=== PATIENT | female | born 1980 | race African-American/Black ===

== ENCOUNTER → 2017-05-11 | Outpatient (CLI) | payer OTHER ==
[2016-07-21 14:28] VITALS: BP 136/90
[~2017-05-11] MED LIST: CLIN150C14 PO; IBUP-1060 PO; LIDO20SO PO
--- NOTE | 2017-05-11 14:27 | KCIC ---
3 view right knee HISTORY: Acute right knee pain after a fall. FINDINGS: No acute fracture or bone destruction. Joints and soft tissues appear intact. Conclusion: No acute radiographic abnormality Electronically signed by: Evelio Shearer MD (05/11/2017 2:24 PM) [facility]
--- NOTE | 2017-05-11 14:28 | KCIC ---
3 view right wrist HISTORY: Acute pain after fall. FINDINGS: No evidence of an acute fracture. Joint spaces intact. No significant soft tissue abnormality. IMPRESSION: No acute fracture or dislocation. Consider MR wrist if symptoms do not improve. Electronically signed by: Evelio Shearer MD (05/11/2017 2:25 PM) [facility]
== END | disposition home or self-care (01) ==
LOC: KCIC 13:42
PROVIDERS: ATTEND Family Medicine
DX: M25.531 Pain in right wrist (principal); M25.561 Pain in right knee; Z91.81 History of falling
CPT/HCPCS: 73110; 73562

== ENCOUNTER 2018-06-07 21:12 | Emergency (ER) | payer OTHER ==
[~2018-06-07] VITALS: Ht 170.2 cm; Wt 103.0 kg
[2018-06-07 21:37] VITALS: BP 147/92
[2018-06-07] MEDS ORDERED: HYDR30CR61 TP (21:47)
--- NOTE | 2018-06-07 21:47 | PHYS DOC ---
Past Medical History Past Medical History: No Pertinent History Past Surgical History: Tubal ligation, Other Additional Past Surgical Histo: ANKLE SX Alcohol Use: Occasionally Drug Use: Marijuana Adult General Chief Complaint Chief Complaint: RECTAL BLEED HPI HPI Patient is a 38 year old female who presents with bright red rectal bleeding that started this morning. Patient reports she has had several bowel movements today and all have had bright red blood present. She has a history of hemorrhoids. She reports she is having some lower abdominal cramping and discomfort that she attributes that to her upcoming menses. Review of Systems Review of Systems Constitutional: Denies fever or chills [] Cardiovascular: No additional information not addressed in HPI [] GI: Generalized abdominal cramping, no nausea or vomiting, bright red blood in stool : Denies dysuria or hematuria [] Musculoskeletal: Denies back pain or joint pain [] Integument: Denies rash or skin lesions [] Neurologic: Denies headache, focal weakness or sensory changes [] All other systems were reviewed and found to be within normal limits, except as documented in this note. Allergies Allergies Allergies Coded Allergies Type Severity Reaction Last Updated Verified codeine Allergy Unknown Itching 02/23/16 Yes iodine Allergy Unknown Itching 02/23/16 Yes Physical Exam Physical Exam Constitutional: Well developed, well nourished, no acute distress, non-toxic appearance. [] HENT: Normocephalic, atraumatic Eyes: PERRLA, EOMI, conjunctiva normal, no discharge. [] Neck: Normal range of motion, no tenderness, supple, no stridor. [] Lungs & Thorax: No increased work of breathing or respiratory distress present Abdomen: Bowel sounds normal, soft, no tenderness Genitourinary: Multiple hemorrhoids present externally around rectum, 1 internal /external hemorrhoid with inflammation, likely the source of bleeding Skin: Warm, dry, no erythema, no rash. [] Neurologic: Alert and oriented X 3, normal motor function, normal sensory function, no focal deficits noted. [] Psychologic: Affect normal, judgement normal, mood normal. [] Current Patient Data Vital Signs Vital Signs Date Time Temp Pulse Resp B/P (MAP) Pulse Ox O2 Delivery O2 Flow Rate FiO2 06/07/18 21:37 98.6 104 18 147/92 (110) 97 Room Air 98.6 EKG EKG [] Radiology/Procedures Radiology/Procedures [] Course & Med Decision Making Course & Med Decision Making Pertinent Labs and Imaging studies reviewed. (See chart for details) Plan: Reassurance provided, Anusol Rx, stool softener, push fluids, follow up with PCP, return precautions reviewed Karen Disclaimer Kamillaon Disclaimer This electronic medical record was generated, in whole or in part, using a voice recognition dictation system. Departure Departure Impression: Primary Impression: Hemorrhoid Disposition: HOME, SELF-CARE Condition: GOOD Referrals: UNKNOWN PCP NAME (PCP) Patient Instructions: Hemorrhoids Additional Instructions: Stool softeners, push fluids Scripts Hydrocortisone (ANUSOL-HC) 30 Gm Cream..g. 1 ROSALBA TP BID, #30 GM 1 Refill Prov: NADIYA ANDERSON APRN 06/07/18 Problem Qualifiers Primary Impression: Hemorrhoid Hemorrhoid type: unspecified Qualified Codes: K64.9 - Unspecified hemorrhoids NADIYA ANDERSON [employer] Jun 07, 2018 21:47
== END 2018-06-07 21:55 | disposition home or self-care (01) ==
LOC: ER 21:12
DX: K64.9 Unspecified hemorrhoids (principal); Z98.51 Tubal ligation status; Z88.5 Allergy status to narcotic agent; Z91.041 Radiographic dye allergy status
CPT/HCPCS: 99283

== ENCOUNTER 2020-01-25 08:43 | Emergency (ER) | payer MEDICAID, OTHER ==
[~2020-01-25] VITALS: Ht 170.2 cm; Wt 104.0 kg
[~2020-01-25 08:43] MED LIST changes: +HYDR30CR61 TP
[2020-01-25 08:50] VITALS: BP 152/94
[2020-01-25] MEDS ORDERED: PENI500T PO (09:19)
--- NOTE | 2020-01-25 09:21 | PHYS DOC ---
Past Medical History Past Medical History: Diverticulitis Past Surgical History: Tubal ligation, Other Additional Past Surgical Histo: ANKLE SX, colon resection, colostomy reversal Smoking Status: Current Every Day Smoker Alcohol Use: Occasionally Drug Use: Marijuana Social History Narrative: last use last week Adult General Chief Complaint Chief Complaint: DENTAL PROBLEM HPI HPI Patient is a 39 year old female presented to the ED with chief complaint of dental pain. Patient states that the pain has been present for the last 3 to 4 days. Patient states that her PCP is not seeing any patients currently and so she came into the ER. Patient complains of pain to the right upper and lower teeth. Patient does have a history of dental caries. Patient denies fever, difficulty in swallowing. Review of Systems Review of Systems Patient denies fever, chills, nausea, vomiting, diarrhea, dysuria, chest pain, abdominal pain, shortness of breath. Patient does complain of dental pain. All other systems were reviewed and found to be within normal limits, except as documented in this note. Allergies Allergies Allergies Coded Allergies Type Severity Reaction Last Updated Verified codeine Allergy Unknown Itching 02/23/16 Yes iodine Allergy Unknown Itching 02/23/16 Yes Physical Exam Physical Exam Constitutional: Well developed, well nourished, no acute distress, non-toxic appearance. [] HENT: Normocephalic, atraumatic, diffuse dental caries in the right upper and right lower jaw Eyes: PERRLA, EOMI Neck: Normal range of motion Cardiovascular:Heart rate regular rhythm, no murmur [] Lungs & Thorax: Bilateral breath sounds clear to auscultation [] Abdomen: Bowel sounds normal, soft, no tenderness Extremities: No tenderness, ROM intact Neurologic: Alert and oriented X 3 Current Patient Data Vital Signs Vital Signs Date Time Temp Pulse Resp B/P (MAP) Pulse Ox O2 Delivery O2 Flow Rate FiO2 01/25/20 08:50 98.8 104 16 152/94 (113) 100 Room Air 98.8 EKG EKG [] Radiology/Procedures Radiology/Procedures [] Course & Med Decision Making Course & Med Decision Making Patient will be treated with oral antibiotics. Patient instructed to follow-up with dentist as soon as possible. Patient vital signs stable. Discussed plan of care with patient. Patient is instructed to follow up with PCP in one to 2 days. Appropriate discharge instructions given to patient to return to the ED or to seek immediate medical evaluation. Patient is instructed to return to the ED if symptoms worsen or if any concerns. Dragon Disclaimer Dragon Disclaimer This electronic medical record was generated, in whole or in part, using a voice recognition dictation system. Departure Departure Impression: Primary Impression: Dental caries Disposition: 01 HOME, SELF-CARE Condition: STABLE Referrals: UNKNOWN PCP NAME (PCP) Patient Instructions: Dental Caries Additional Instructions: Discussed plan of care with patient. Patient is instructed to follow up with PCP and/or dentist n one to 2 days. Appropriate discharge instructions given to patient to return to the ED or to seek immediate medical evaluation. Patient is instructed to return to the ED if symptoms worsen or if any concerns. Scripts Penicillin V Potassium (PENICILLIN V POTASSIUM) 500 Mg Tablet 1 TAB PO QID for 10 Days, #40 TAB Prov: YAZMIN RICKETTS DO 01/25/20 YAZMIN RICKETTS DO Jan 25, 2020 09:20
== END 2020-01-25 09:32 | disposition home or self-care (01) ==
LOC: ER 08:43
DX: K02.9 Dental caries, unspecified (principal); K08.89 Other specified disorders of teeth and supporting structures; F17.200 Nicotine dependence, unspecified, uncomplicated; Z88.5 Allergy status to narcotic agent; Z88.8 Allergy status to other drugs, medicaments and biological substances
CPT/HCPCS: 99283

== ENCOUNTER 2020-10-01 06:24 | Emergency (ER) | payer MEDICAID ==
[~2020-10-01] VITALS: Ht 170.2 cm; Wt 119.0 kg
[~2020-10-01 06:24] MED LIST changes: +PENI500T PO
[2020-10-01 06:38] VITALS: BP 185/96
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
[2020-10-01] MEDS ORDERED: KETOROLAC 60 MG/2 ML VIAL. IM ONE (07:30)
[2020-10-01] MEDS ORDERED: HYDROcodone/APAP 5/325MG 1 TAB TABLET PO ONE (07:30)
[2020-10-01] MEDS ORDERED: CYCLOBENZAPRINE 10 MG TABLET. PO ONE (07:30)
[2020-10-01] MEDS ORDERED: methylPREDNISolone SOD SUCC PF 125 MG/2 ML VIAL. IM ONE (07:30)
--- NOTE | 2020-10-01 09:25 | RAD ---
LUMBAR SPINE 2-3V DATE: 10/01/2020 7:09 AM INDICATION: Reason: lower back pain radiating to legs. / Spl. Instructions: / History: COMPARISON: None. FINDINGS: Five non-rib bearing lumbar-type vertebral bodies are present. Bones/Alignment: No evidence of acute compression fracture. There is no listhesis. Joints: There is no disc space loss. Miscellaneous: None. IMPRESSION: No acute osseous abnormality. Electronically signed by: Jarett Cazares MD (10/01/2020 9:22 AM) [id number]
[2020-10-01] MEDS ORDERED: TRAM100T2 PO (10:06)
[2020-10-01] MEDS ORDERED: PRED20TA PO (10:06)
== END 2020-10-01 10:17 | disposition home or self-care (01) ==
LOC: ER 06:24
DX: M54.41 Lumbago with sciatica, right side (principal); M54.42 Lumbago with sciatica, left side; M54.2 Cervicalgia; Z98.51 Tubal ligation status; F17.200 Nicotine dependence, unspecified, uncomplicated; Z87.19 Personal history of other diseases of the digestive system; Z88.5 Allergy status to narcotic agent; Z88.8 Allergy status to other drugs, medicaments and biological substances
CPT/HCPCS: 72100; 81025; 96372; 99284; J1885; J2930

== ENCOUNTER 2021-10-04 21:42 | Emergency (ER) | payer MEDICAID ==
[~2021-10-04] VITALS: Ht 170.2 cm; Wt 122.0 kg
[~2021-10-04 21:42] MED LIST changes: +BENZ100C PO; -CLIN150C14 PO; +CLIN150C16 PO; +CYCL10TA19 PO; +HYDR-2761 PO; +PRED20TA PO; +TRAM100T2 PO
[2021-10-04] MEDS ORDERED: IV NORMAL SALINE 500ML BAG 500 ML IV ONE (22:15)
[2021-10-04] MEDS ORDERED: ONDANSETRON PF 4 MG/2 ML VIAL. IVP ONE (22:15)
--- NOTE | 2021-10-04 22:19 | ED.ADGEN ---
Past Medical History Past Medical History: Diverticulitis Additional Past Medical Histor: UTERINE FIBROIDS Past Surgical History: Tubal ligation, Other Additional Past Surgical Histo: ANKLE colon resection,colostomy ,ABSCESS R BREAST Smoking Status: Current Every Day Smoker Alcohol Use: Heavy Drug Use: Marijuana General Adult HPI: HPI: Patient is a 41 year old female coming in for multiple complaints. Patient is concerned she has Covid, is also noticed dark brown blood in her stools. She has had productive cough, vomiting, diarrhea, decreased appetite, and abdominal pain that she describes as "gurgling". Says the abdominal pain is generalized and moves around. Denies any hematuria dysuria. Has not been vaccinated against Covid or influenza, no known sick contacts. Review of Systems: Review of Systems: All other systems within normal limits except for as noted in the HPI Current Medications: Current Medications Medications (Trade) Dose Ordered Sig/Perlita Start Time Stop Time Status Last Admin Dose Admin Ketorolac Tromethamine (Toradol 15mg Vial) 15 mg 1X ONCE 10/05/21 00:30 10/05/21 00:31 DC 10/05/21 00:39 15 MG Ondansetron HCl (Zofran) 4 mg 1X ONCE 10/04/21 22:15 10/04/21 22:16 DC 10/04/21 23:39 4 MG Sodium Chloride 1,000 ml @ 1,000 mls/hr 1X ONCE 10/04/21 23:45 10/05/21 00:44 DC 10/05/21 00:39 1,000 MLS/HR Allergies: Allergies: Allergies Coded Allergies Type Severity Reaction Last Updated Verified codeine Allergy Intermediate Itching 05/24/21 Yes iodine Allergy Intermediate Itching 05/24/21 Yes Physical Exam: PE: Constitutional: Well developed, well nourished, no acute distress, non-toxic appearance. [] HENT: Normocephalic, atraumatic, bilateral external ears normal, nose normal. [] Eyes: PERRLA, conjunctiva normal, no discharge. [] Neck: No rigidity, supple, no stridor. [] Cardiovascular: Regular rate and rhythm, brisk cap refill [] Lungs & Thorax: Non labored symmetric respirations, no tachypnea or respiratory distress [] Abdomen: Soft, nondistended. Skin: Warm, dry, no erythema, no rash. [] Back: Unremarkable Extremities: No deformities, range of motion grossly intact, no lower extremity edema [] Neurologic: Alert and oriented X 3, no focal deficits noted. [] Psychologic: Affect normal, judgement normal, mood normal. [] Current Patient Data: Labs: Laboratory Tests Test 10/04/21 22:35 10/04/21 22:46 White Blood Count 3.9 x10^3/uL (4.0-11.0) L Red Blood Count 4.38 x10^6/uL (3.50-5.40) Hemoglobin 9.0 g/dL (12.0-15.5) L Hematocrit 30.9 % (36.0-47.0) L Mean Corpuscular Volume 71 fL (79-100) L Mean Corpuscular Hemoglobin 21 pg (25-35) L Mean Corpuscular Hemoglobin Concent 29 g/dL (31-37) L Red Cell Distribution Width 23.0 % (11.5-14.5) H Platelet Count 253 x10^3/uL (140-400) Neutrophils (%) (Auto) 45 % (31-73) Lymphocytes (%) (Auto) 45 % (24-48) Monocytes (%) (Auto) 9 % (0-9) Eosinophils (%) (Auto) 0 % (0-3) Basophils (%) (Auto) 1 % (0-3) Neutrophils # (Auto) 1.8 x10^3/uL (1.8-7.7) Lymphocytes # (Auto) 1.8 x10^3/uL (1.0-4.8) Monocytes # (Auto) 0.3 x10^3/uL (0.0-1.1) Eosinophils # (Auto) 0.0 x10^3/uL (0.0-0.7) Basophils # (Auto) 0.0 x10^3/uL (0.0-0.2) Platelet Estimate Adequate (ADEQUATE) Polychromasia Slight Hypochromasia Marked Anisocytosis Mod Microcytosis Mod Urine Collection Type Unknown Urine Color Yellow Urine Clarity Clear Urine pH 5.5 (<5.0-8.0) Urine Specific Sanger 1.020 (1.000-1.030) Urine Protein 30 mg/dL (NEG-TRACE) Urine Glucose (UA) Negative mg/dL (NEG) Urine Ketones (Stick) Negative mg/dL (NEG) Urine Blood Negative (NEG) Urine Nitrite Negative (NEG) Urine Bilirubin Negative (NEG) Urine Urobilinogen Dipstick 0.2 mg/dL (0.2 mg/dL) Urine Leukocyte Esterase Negative (NEG) Urine RBC 0 /HPF (0-2) Urine WBC 1-4 /HPF (0-4) Urine Squamous Epithelial Cells Many /LPF Urine Bacteria Moderate /HPF (0-FEW) Urine Mucus Slight /LPF Urine Test Negative (NEG) Sodium Level 136 mmol/L (136-145) Potassium Level 3.8 mmol/L (3.5-5.1) Chloride Level 99 mmol/L (98-107) Carbon Dioxide Level 21 mmol/L (21-32) Anion Gap 16 (6-14) H Blood Urea Nitrogen 7 mg/dL (7-20) Creatinine 0.9 mg/dL (0.6-1.0) Estimated GFR (Cockcroft-Gault) 84.3 BUN/Creatinine Ratio 8 (6-20) Glucose Level 95 mg/dL (70-99) Lactic Acid Level 2.5 mmol/L (0.4-2.0) H Calcium Level 8.6 mg/dL (8.5-10.1) Total Bilirubin 0.2 mg/dL (0.2-1.0) Aspartate Amino Transferase (AST) 63 U/L (15-37) H Alanine Aminotransferase (ALT) 61 U/L (14-59) H Alkaline Phosphatase 80 U/L (46-116) Total Protein 7.5 g/dL (6.4-8.2) Albumin 3.4 g/dL (3.4-5.0) Albumin/Globulin Ratio 0.8 (1.0-1.7) L Lipase 80 U/L (73-393) Influenza Type A Antigen Negative (NEGATIVE) Influenza Type B Antigen Negative (NEGATIVE) SARS-CoV-2 Antigen (Rapid) Positive (NEGATIVE) *A Laboratory Tests 10/04/21 22:35 Laboratory Tests 10/04/21 22:35 EKG: EKG: Sinus rhythm, heart rate 90 bpm, normal axis, no ST elevation or depression, per QT interval. [] Heart Score: C/O Chest Pain: No Risk Factors: Risk Factors: DM, Current or recent (<one month) smoker, HTN, HLP, family history of CAD, obesity. Risk Scores: Score 0 - 3: 2.5% MACE over next 6 weeks - Discharge Home Score 4 - 6: 20.3% MACE over next 6 weeks - Admit for Clinical Observation Score 7 - 10: 72.7% MACE over next 6 weeks - Early Invasive Strategies Radiology/Procedures: Radiology/Procedures: Acute abdomen series EP interpretation: Monitor bowel gas pattern, no significant opacities in the lungs [] Course & Med Decision Making: Course & Med Decision Making Pertinent Labs and Imaging studies reviewed. (See chart for details) [] Dragon Disclaimer: Dragon Disclaimer: This electronic medical record was generated, in whole or in part, using a voice recognition dictation system. Departure Departure Impression: Primary Impression: COVID Disposition: 01 HOME / SELF CARE / HOMELESS Condition: STABLE Referrals: UNKNOWN PCP NAME (PCP) Patient Instructions: Viral Syndrome Scripts Albuterol Sulfate (PROAIR HFA INHALER) 8.5 Gm Hfa.aer.ad 2 PUFF IH PRN Q4-6HRS PRN for wheezing for 21 Days, #1 INHALER 0 Refills Prov: KHOA DUNCAN MD 10/05/21 Ondansetron (ONDANSETRON ODT) 4 Mg Tab.rapdis 1 TAB PO PRN Q6-8HRS PRN for NAUSEA, #16 TAB Prov: KHOA DUNCAN MD 10/05/21 Acetaminophen With Codeine (ACETAMINOPHEN-COD #3 TABLET) 1 Each Tablet 1 TAB PO PRN Q6HRS PRN for COUGH for 3 Days, #10 TAB Prov: KHOA DUNCAN MD 10/05/21 KHOA DUNCAN MD Oct 04, 2021 22:19
[2021-10-04 22:50] LABS: BASO % 1 % (0-3); EOS % 0 % (0-3); HEMATOCRIT 30.9 % (36.0-47.0); LYMPH # 1.8 x10^3/uL (1.0-4.8); LYMPH % 45 % (24-48); MEAN CORPUSCULAR HEMOGLOBIN 21 pg (25-35); MEAN CORPUSCULAR HGB CONC 29 g/dL (31-37); MEAN CORPUSCULAR VOLUME 71 fL (79-100); MONO # 0.3 x10^3/uL (0.0-1.1); MONO % 9 % (0-9); NEUT # 1.8 x10^3/uL (1.8-7.7); NEUT % 45 % (31-73); PLATELET COUNT 253 x10^3/uL (140-400); RED BLOOD COUNT 4.38 x10^6/uL (3.50-5.40); WHITE BLOOD COUNT 3.9 x10^3/uL (4.0-11.0)
[2021-10-04 23:00] LABS: CALCIUM 8.6 mg/dL (8.5-10.1); CREATININE 0.9 mg/dL (0.6-1.0); GFR 84.3; POTASSIUM 3.8 mmol/L (3.5-5.1)
[2021-10-04 23:01] LABS: BILIRUBIN,URINE NEGATIVE (NEG); CLARITY,URINE CLEAR; COLOR,URINE YELLOW; NITRITE,URINE NEGATIVE (NEG); PH,URINE 5.5 (<5.0-8.0); PROTEIN,URINE 30 mg/dL (NEG-TRACE); UROBILINOGEN,URINE 0.2 mg/dL (0.2 mg/dL)
[2021-10-04 23:05] LABS: ALBUMIN 3.4 g/dL (3.4-5.0); ALBUMIN/GLOBULIN RATIO 0.8 (1.0-1.7); TOTAL BILIRUBIN 0.2 mg/dL (0.2-1.0); TOTAL PROTEIN 7.5 g/dL (6.4-8.2)
[2021-10-04 23:30] LABS: BACTERIA,URINE MODERATE /HPF (0-FEW); RBC,URINE 0 /HPF (0-2)
[2021-10-04 23:32] LABS: PLT ESTIMATE ADEQUATE (ADEQUATE)
[2021-10-04 23:33] LABS: ANISOCYTOSIS MOD; HYPOCHROMIA MARKED; MICROCYTOSIS MOD; POLYCHROMASIA SLIGHT
[2021-10-04] MEDS ORDERED: IV NORMAL SALINE 1000ML BAG 1,000 ML IV ONE (23:45)
[2021-10-04 23:52] LABS: U PREG PATIENT NEGATIVE (NEG)
[2021-10-04 23:59] LABS: INFLUENZA A PATIENT NEGATIVE (NEGATIVE); INFLUENZA B PATIENT NEGATIVE (NEGATIVE)
[2021-10-05] MEDS ORDERED: KETOROLAC 15 MG/ML VIAL. IVP ONE (00:30)
[2021-10-05] MEDS ORDERED: ONDA4TAB12 PO (01:10)
[2021-10-05] MEDS ORDERED: ALBU2.5V8 IH (01:10)
[2021-10-05] MEDS ORDERED: ACET1TAB33 PO (01:10)
[2021-10-05] MEDS ORDERED: fentaNYL PF VIAL 100 MCG/2 ML VIAL IVP ONE (01:15)
[2021-10-05 01:27] VITALS: BP 134/80
--- NOTE | 2021-10-05 04:05 | EKG ---
[facility] [address] [place] [address] Test Date: 2021-10-04 Test Time: 21:53:48 Pat Name: CHRISTIAN TORRES Department: Room: Gender: F Print Room Worker: : 1980 Requested By: KHOA DUNCAN Order Number: [id number] Reading MD: Measurements Intervals Temperance Rate: 98 P: 43 NE: 134 QRS: 2 QRSD: 72 T: 7 QT: 402 QTc: 515 Interpretive Statements SINUS RHYTHM PROLONGED QT NO SPECIFIC ECG ABNORMALITIES RI6.02 No previous ECG available for comparison
--- NOTE | 2021-10-05 07:20 | RAD ---
2 view abdominal series and AP portable chest x-ray Clinical indications: Abdominal pain. FINDINGS: No obstructive bowel pattern is seen. No free intraperitoneal air or air-fluid levels are s een. Chest x-ray demonstrates no acute lung infiltrate or pleural effusion or pneumothorax. Heart size and mediastinum and pulmonary vasculature and both shayy are unremarkable. IMPRESSION: No obstructive bowel pattern or free air. No acute infiltrate. Electronically signed by: Facundo Richmond MD (10/05/2021 7:18 AM) [id number]
== END 2021-10-05 02:00 | disposition home or self-care (01) ==
LOC: ER 21:42
DX: U07.1 COVID-19 (principal); K62.5 Hemorrhage of anus and rectum; F17.200 Nicotine dependence, unspecified, uncomplicated; Z88.5 Allergy status to narcotic agent; Z88.8 Allergy status to other drugs, medicaments and biological substances
CPT/HCPCS: 36415; 74022; 80053; 81001; 81025; 83605; 83690; 85025; 87086; 87426; 87804; 93005; 96361; 96374; 96375; 99285; J1885; J2405; J3010; J7030; J7040; U0003

== ENCOUNTER 2022-01-20 11:16 | Emergency (ER) | payer MEDICAID ==
[~2022-01-20] VITALS: Ht 170.2 cm; Wt 121.5 kg
[~2022-01-20 11:16] MED LIST changes: +ACET1TAB33 PO; +ALBU2.5V8 IH; +ONDA4TAB12 PO; +TRAM100T10 PO; -TRAM100T2 PO
--- NOTE | 2022-01-20 11:53 | PHYS DOC ---
Past Medical History Past Medical History: Diverticulitis Additional Past Medical Histor: UTERINE FIBROIDS Past Surgical History: Tubal ligation, Other Additional Past Surgical Histo: ANKLE colon resection,colostomy ,ABSCESS R BREAST Smoking Status: Current Every Day Smoker Alcohol Use: Heavy Drug Use: Marijuana General Adult EDM: Chief Complaint: FLU SYMPTOM HPI: HPI: Patient is a 41-year-old female that presents today with nausea, vomiting, diarrhea, body aches and fever. Patient states her symptoms started approx imately 8 days ago with some tightness in her neck and upper back area, and over the last couple of days she has developed nausea vomiting and " explosive" diarrhea. Patient states she is also been experiencing chills, she has not taken her temperature. Patient denies blood in her stool, she denies painful urination or frequency in urination. Patient states she has not had Covid or influenza vaccines. Review of Systems: Review of Systems: Constitutional: chills. [] Eyes: Denies change in visual acuity. [] HENT: Denies nasal congestion or sore throat. [] Respiratory: Denies cough or shortness of breath. [] Cardiovascular: Denies chest pain or edema. [] GI: abdominal pain, nausea, vomiting, diarrhea. [] : Denies dysuria. [] Musculoskeletal: Denies back pain or joint pain. [] Integument: Denies rash. [] Neurologic: Denies headache, focal weakness or sensory changes. [] Endocrine: Denies polyuria or polydipsia. [] Lymphatic: Denies swollen glands. [] Psychiatric: Denies depression or anxiety. [] Heart Score: C/O Chest Pain: No Risk Factors: Risk Factors: DM, Current or recent (<one month) smoker, HTN, HLP, family history of CAD, obesity. Risk Scores: Score 0 - 3: 2.5% MACE over next 6 weeks - Discharge Home Score 4 - 6: 20.3% MACE over next 6 weeks - Admit for Clinical Observation Score 7 - 10: 72.7% MACE over next 6 weeks - Early Invasive Strategies Allergies: Allergies: Allergies Coded Allergies Type Severity Reaction Last Updated Verified codeine Allergy Intermediate Itching 05/24/21 Yes iodine Allergy Intermediate Itching 05/24/21 Yes Physical Exam: PE: Constitutional: Well developed, well nourished, mild distress, non-toxic appearance. [] HENT: Normocephalic, atraumatic, bilateral external ears normal, oropharynx moist, no oral exudates, nose normal. [] Eyes: PERRLA, EOMI, conjunctiva normal, no discharge. [] Neck: Normal range of motion, no tenderness, supple, no stridor. [] Cardiovascular:Heart rate regular rhythm, no murmur [] Lungs & Thorax: Bilateral breath sounds clear to auscultation [] Abdomen: Abdomen is soft with tenderness located on the left lower quadrant, bowel sounds are hyperactive no pulsatile masses noted Skin: Warm, dry, no erythema, no rash. [] Back: No tenderness, no CVA tenderness. [] Extremities: No tenderness, no cyanosis, no clubbing, ROM intact, no edema. [] Neurologic: Alert and oriented X 3, normal motor function, normal sensory function, no focal deficits noted. [] Psychologic: Affect normal, judgement normal, mood normal. [] Current Patient Data: Labs: Laboratory Tests Test 01/20/22 11:50 01/20/22 11:57 01/20/22 12:12 Urine Collection Type Void Urine Color (Auto) Yellow Urine Turbidity Hazy Urine pH (Auto) 6.0 Urine Specific [place] 1.022 Urine Protein (Auto) Negative mg/dL Urine Glucose (Auto)(UA) Negative mg/dL Urine Ketones (Auto) Negative mg/dL Urine Blood (Auto) Negative Urine Nitrite Negative Urine Bilirubin (Auto) Negative Urine Urobilinogen (Auto) Normal mg/dL Urine Leukocyte Esterase (Auto) Negative Urine RBC 0 /HPF Urine WBC Occ /HPF Urine Squamous Epithelial Cells Many /LPF Urine Bacteria Few /HPF Urine Mucus Marked /LPF Bedside Urine HCG, Qualitative Hcg negative White Blood Count 6.4 x10^3/uL Red Blood Count 4.72 x10^6/uL Hemoglobin 8.9 g/dL Hematocrit 31.1 % Mean Corpuscular Volume 66 fL Mean Corpuscular Hemoglobin 19 pg Mean Corpuscular Hemoglobin Concent 29 g/dL Red Cell Distribution Width 20.9 % Platelet Count 314 x10^3/uL Neutrophils (%) (Auto) 55 % Lymphocytes (%) (Auto) 34 % Monocytes (%) (Auto) 9 % Eosinophils (%) (Auto) 2 % Basophils (%) (Auto) 1 % Neutrophils # (Auto) 3.5 x10^3/uL Lymphocytes # (Auto) 2.2 x10^3/uL Monocytes # (Auto) 0.6 x10^3/uL Eosinophils # (Auto) 0.1 x10^3/uL Basophils # (Auto) 0.0 x10^3/uL Platelet Estimate Adequate Polychromasia Slight Hypochromasia Mod Anisocytosis Slight Microcytosis Slight Target Cells Occ Tear Drop Cells Occ Ovalocytes Occ Sodium Level 138 mmol/L Potassium Level 4.3 mmol/L Chloride Level 101 mmol/L Carbon Dioxide Level 24 mmol/L Anion Gap 13 Blood Urea Nitrogen 6 mg/dL Creatinine 1.0 mg/dL Estimated GFR (Cockcroft-Gault) 74.7 BUN/Creatinine Ratio 6 Glucose Level 114 mg/dL Calcium Level 9.3 mg/dL Total Bilirubin 0.4 mg/dL Aspartate Amino Transf (AST/SGOT) 69 U/L Alanine Aminotransferase (ALT/SGPT) 65 U/L Alkaline Phosphatase 70 U/L Total Protein 7.8 g/dL Albumin 3.6 g/dL Albumin/Globulin Ratio 0.9 Lipase 69 U/L Influenza Type A Antigen Negative Influenza Type B Antigen Negative SARS-CoV-2 Antigen (Rapid) Negative Current Medications Medications (Trade) Dose Ordered Sig/Perlita Route PRN Reason Start Time Stop Time Status Last Admin Dose Admin Sodium Chloride 1,000 ml @ 125 mls/hr 1X ONCE IV 01/20/22 12:00 01/20/22 19:59 01/20/22 12:15 Ondansetron HCl (Zofran) 4 mg 1X ONCE IVP 01/20/22 12:00 01/20/22 12:01 DC 01/20/22 12:15 Vital Signs: Vital Signs Date Time Temp Pulse Resp B/P (MAP) Pulse Ox O2 Delivery O2 Flow Rate FiO2 01/20/22 11:19 98.2 98 18 185/88 (120) 100 Room Air 98.2 EKG: EKG: [] Radiology/Procedures: Radiology/Procedures: REASON: n/v/d abdominal pain PROCEDURE: CT ABDOMEN PELVIS WO CONTRAST Exam: CT abdomen/pelvis without intravenous contrast Indication: Nausea, vomiting, abdominal pain Comparison: None Technique: Helical CT imaging performed of the abdomen and pelvis without the use of intravenous contrast. Sagittal and coronal reformats were obtained. One or more of the following individualized dose reduction techniques were utilized for this examination: 1. Automated exposure control 2. Adjustment of the mA and/or kV according to patient size 3. Use of iterative reconstruction technique. Findings: Inherently limited evaluation without intravenous contrast. Lower chest: Lung bases are clear. The heart is normal in size. Liver: There is a 1.3 cm cyst along falciform ligament. Gallbladder/Biliary Tree: Normal. Pancreas: Normal. Spleen: Normal. Adrenal Glands: Normal Kidneys/Ureters/Bladder: Kidneys are normal in size. No hydronephrosis or nephrolithiasis. Ureters and bladder are unremarkable. Reproductive Organs: Uterus is anteverted. No adnexal mass. Stomach, small bowel, and colon: The stomach is normal. There is no small bowel obstruction. There are surgical changes of the colon with an anastomosis at the rectosigmoid junction. Multiple loops of small bowel and part of the transverse colon are within a large ventral hernia. No evidence of complication. Vasculature: No aortic aneurysm. Lymph Nodes: No lymphadenopathy. Peritoneum and retroperitoneum: No free fluid or free air. Bones: No acute osseous abnormality. Miscellaneous: Large ventral hernia containing small bowel and colon, as above. IMPRESSION: 1. No acute abnormality. 2. Large ventral abdominal wall hernia containing small bowel and colon. No evidence of complication. 3. Surgical changes of the sigmoid colon. Electronically signed by: Mirtha Kaufman MD (01/20/2022 1:51 PM) [id number][] Course & Med Decision Making: Course & Med Decision Making Pertinent Labs and Imaging studies reviewed. (See chart for details) 1430 reviewed radiological and laboratory results with patient, patient has not had any vomiting while still in the department but she continues to be nauseated and is concerned that she will get home she will be unable to tolerate by mouth fluids. We will p.o. challenge the patient and will see if she is able to tolerate p.o. fluid if she has not we will admit her for intractable nausea and vomiting. 1615 patient is able to tolerate p.o. fluid, we did give her a dose of Pepcid here in the emergency department which is helped her abdominal pain tremendously, patient still continues to have diarrhea and a stool sample was sent for further testing. Patient is agreeable with going home to follow-up with her primary care physician or clinic listed on the discharge instructions for further management of this nausea vomiting and abdominal pain. Patient is to return to the emergency department if she is unable to keep any by mouth fluids down, she is to follow a clear liquid diet for the next 24 hours and then advance as tolerated. Karen Disclaimer: Karen Disclaimer: This electronic medical record was generated, in whole or in part, using a voice recognition dictation system. Departure Departure Impression: Primary Impression: Gastroenteritis Disposition: 01 HOME / SELF CARE / HOMELESS Condition: STABLE Referrals: NO PCP (PCP) Patient Instructions: Clear Liquid Diet, Viral Gastroenteritis Additional Instructions: Clear liquid diet for the next 24 hours then advance as tolerated to the brat diet (bananas, rice, applesauce, and toast) for the next 24 hours and then advance as tolerated to a normal diet Pepcid take 1 tablet twice daily for the next 4 weeks Zofran take 1 tablet every 6-8 hours as needed for nausea, use with caution may cause constipation [id number] Imodium as needed for diarrhea Ultram take 1 tablet every 6 hours as needed for severe pain, use with caution may cause drowsiness and constipation Follow-up with your primary care physician or one of the listed clinics below for further management and evaluation of your abdominal pain Return to the emergency department if you are unable to take any by mouth fluids even with the use of Zofran, increased abdominal pain, change in mental status, or you noticed blood in your stool. Remy [place] [facility] [place] [address] [place] [address] [facility] [address] [place] [address] [facility] [address] [facility] [place] [address] [facility] [address] [place] [address] [facility] [address] [place] [address] [address] [address] [place] [address] [facility] [place] [address] [place] [address] [facility] [address] [place] [address] [facility] [address] [place] [address] [facility] [address] [place] [address] Scripts Tramadol Hcl (ULTRAM) 50 Mg Tablet 1 TAB PO PRN Q6HRS PRN for pain MDD 4 Tablet(s) for 7 Days, #28 TAB 0 Refills Prov: HAN HILL HOME CARE COORDINATOR 01/20/22 Famotidine (PEPCID) 20 Mg Tablet 20 MG PO BID for 30 Days, #60 TAB Prov: HAN HILL HOME CARE COORDINATOR 01/20/22 Ondansetron (ONDANSETRON ODT) 4 Mg Tab.rapdis 1 TAB PO PRN Q6-8HRS, #16 TAB Prov: HAN HILL HOME CARE COORDINATOR 01/20/22 HAN HILL HOME CARE COORDINATOR Jan 20, 2022 11:52
[2022-01-20] MEDS ORDERED: IV NORMAL SALINE 1000ML BAG 1,000 ML IV ONE ×2 (12:00→15:15)
[2022-01-20] MEDS ORDERED: ONDANSETRON PF 4 MG/2 ML VIAL. IVP ONE (12:00)
[2022-01-20 12:26] LABS: BASO % 1 % (0-3); EOS # 0.1 x10^3/uL (0.0-0.7); EOS % 2 % (0-3); HEMATOCRIT 31.1 % (36.0-47.0); HEMOGLOBIN 8.9 g/dL (12.0-15.5); LYMPH # 2.2 x10^3/uL (1.0-4.8); LYMPH % 34 % (24-48); MEAN CORPUSCULAR HEMOGLOBIN 19 pg (25-35); MEAN CORPUSCULAR HGB CONC 29 g/dL (31-37); MEAN CORPUSCULAR VOLUME 66 fL (79-100); MONO # 0.6 x10^3/uL (0.0-1.1); MONO % 9 % (0-9); NEUT # 3.5 x10^3/uL (1.8-7.7); NEUT % 55 % (31-73); PLATELET COUNT 314 x10^3/uL (140-400); RED BLOOD COUNT 4.72 x10^6/uL (3.50-5.40); RED CELL DISTRIBUTION WIDTH 20.9 % (11.5-14.5); WHITE BLOOD COUNT 6.4 x10^3/uL (4.0-11.0)
[2022-01-20 12:29] LABS: BACTERIA,URINE FEW /HPF (0-FEW); RBC,URINE 0 /HPF (0-2); WBC,URINE OCC /HPF (0-4)
[2022-01-20 12:36] LABS: CALCIUM 9.3 mg/dL (8.5-10.1); GFR 74.7; POTASSIUM 4.3 mmol/L (3.5-5.1)
[2022-01-20 12:41] LABS: ALBUMIN 3.6 g/dL (3.4-5.0); ALBUMIN/GLOBULIN RATIO 0.9 (1.0-1.7); TOTAL BILIRUBIN 0.4 mg/dL (0.2-1.0); TOTAL PROTEIN 7.8 g/dL (6.4-8.2)
[2022-01-20 12:42] LABS: INFLUENZA A PATIENT NEGATIVE (NEGATIVE); INFLUENZA B PATIENT NEGATIVE (NEGATIVE)
[2022-01-20 13:03] LABS: PLT ESTIMATE ADEQUATE (ADEQUATE)
[2022-01-20 13:04] LABS: ANISOCYTOSIS SLIGHT; HYPOCHROMIA MOD; MICROCYTOSIS SLIGHT; POLYCHROMASIA SLIGHT
[2022-01-20 13:05] LABS: OVALOCYTES OCC; TARGET CELLS OCC; TEAR DROP CELLS OCC
--- NOTE | 2022-01-20 13:53 | RAD ---
Exam: CT abdomen/pelvis without intravenous contrast Indication: Nausea, vomiting, abdominal pain Comparison: None Technique: Helical CT imaging performed of the abdomen and pelvis without the use of intravenous cont rast. Sagittal and coronal reformats were obtained. One or more of the following individualized dose reduction techniques were utilized for this examinat ion: 1. Automated exposure control 2. Adjustment of the mA and/or kV according to patient size 3. Use of iterative reconstruction technique. Findings: Inherently limited evaluation without intravenous contrast. Lower chest: Lung bases are clear. The heart is normal in size. Liver: There is a 1.3 cm cyst along falciform ligament. Gallbladder/Biliary Tree: Normal. Pancreas: Normal. Spleen: Normal. Adrenal Glands: Normal Kidneys/Ureters/Bladder: Kidneys are normal in size. No hydronephrosis or nephrolithiasis. Ureters an d bladder are unremarkable. Reproductive Organs: Uterus is anteverted. No adnexal mass. Stomach, small bowel, and colon: The stomach is normal. There is no small bowel obstruction. There ar e surgical changes of the colon with an anastomosis at the rectosigmoid junction. Multiple loops of s mall bowel and part of the transverse colon are within a large ventral hernia. No evidence of complic ation. Vasculature: No aortic aneurysm. Lymph Nodes: No lymphadenopathy. Peritoneum and retroperitoneum: No free fluid or free air. Bones: No acute osseous abnormality. Miscellaneous: Large ventral hernia containing small bowel and colon, as above. IMPRESSION: 1. No acute abnormality. 2. Large ventral abdominal wall hernia containing small bowel and colon. No evidence of complication . 3. Surgical changes of the sigmoid colon. Electronically signed by: Mirtha Kaufman MD (01/20/2022 1:51 PM) [id number]
[2022-01-20] MEDS ORDERED: FAMOTIDINE 20 MG/2 ML VIAL IVP ONE (15:15)
[2022-01-20] MEDS ORDERED: traMADol 50 MG TABLET PO ONE (16:15)
[2022-01-20] MEDS ORDERED: ONDA4TAB12 PO (16:36)
[2022-01-20] MEDS ORDERED: FAMO-63 PO (16:36)
[2022-01-20] MEDS ORDERED: TRAM-48 PO (16:36)
[2022-01-20 17:17] VITALS: BP 138/67
== END 2022-01-20 17:19 | disposition home or self-care (01) ==
LOC: ER 11:16
DX: K52.9 Noninfective gastroenteritis and colitis, unspecified (principal); F17.200 Nicotine dependence, unspecified, uncomplicated; Z98.51 Tubal ligation status; Z93.3 Colostomy status; Z20.822 Contact with and (suspected) exposure to COVID-19
CPT/HCPCS: 36415; 74176; 80053; 81001; 81025; 83690; 85025; 87428; 87505; 96361; 96374; 96375; 99285; J2405; J3490; J7030